=== PATIENT | male | born 1935 | race Caucasian/White ===

== ENCOUNTER 2018-01-02 21:56 | Emergency (ER) | payer OTHER ==
[~2018-01-02] VITALS: Ht 154.9 cm; Wt 54.4 kg
[2018-01-02 21:58] VITALS: BP 145/85
[2018-01-02] MEDS ORDERED: OMEP20TC12 PO (22:07)
[2018-01-02] MEDS ORDERED: CARB1TAB40 PO (22:07)
[2018-01-02] MEDS ORDERED: TRAM50TA1 PO (22:08)
--- NOTE | 2018-01-02 22:09 | NUR ---
PATIENT BIB WHEELCHAOR TO ER BED 3
--- NOTE | 2018-01-02 22:10 | NUR ---
82/M BIB FAMILY VIA WHEELCHAIR, C/O CONSTIPATION X4 DAYS. C/O 05/15 MID ABD PAIN, NONRADIATING, INTERMITTENT. LBM 4 DAYS AGO. PT DENIES CP, N/V, DYSURIA. AOX4, RR EVEN AND UNLABORED. HX PARKINSON'S, HERNIA.
[2018-01-02] MEDS ORDERED: SODIUM PHOSPHATE 118 ML ENEM RC ONE (22:40)
--- NOTE | 2018-01-02 23:20 | NUR ---
PT BACK FROM CT, WILL ADMINISTER FLEET ENEMA ORDERED
--- NOTE | 2018-01-03 | NUR ---
Patient appears to be resting comfortably in bed. Vital Signs within normal limits. Respirations even and unlabored.
[2018-01-03] MEDS ORDERED: MAGNESIUM CITRATE 300 ML BTL PO ONE (00:10)
[2018-01-03] MEDS ORDERED: MAGNESIUM CITRATE 300 ML BTL ONE (00:13)
[2018-01-03] MEDS ORDERED: KETOROLAC 30 MG/ML VIAL IM ONE (00:55)
--- NOTE | 2018-01-03 01:00 | NUR ---
PT STILL UNABLE TO HAVE BM, DR AGUERO MADE AWARE.
[2018-01-03 01:33] LABS: BASOPHILS % (AUTO) 0.9 % (0.0-2.0); EOSINOPHILS # (AUTO) 0.1 K/uL (0-0.4); EOSINOPHILS % (AUTO) 2.4 % (0.0-4.0); HEMATOCRIT 43.8 % (36-52); HEMOGLOBIN 14.8 g/dL (12.0-18.0); LYMPHOCYTES # (AUTO) 1.6 K/uL (2.0-11.5); LYMPHOCYTES % (AUTO) 30.3 % (20.5-51.1); MEAN CORPUSCULAR HEMOGLOBIN 33 pg (27-31); MEAN CORPUSCULAR HGB CONC 34 g/dL (33-37); MEAN CORPUSCULAR VOLUME 98.4 fL (80-94); MONOCYTES # (AUTO) 0.5 K/uL (0.8-1.0); MONOCYTES % (AUTO) 8.7 % (1.7-9.3); NEUTROPHILS % (AUTO) 57.7 % (42.2-75.2); PLATELET COUNT (AUTO) 211 K/uL (140-450); RED BLOOD CELL COUNT(AUTO) 4.45 MIL/uL (4.20-6.10); RED CELL DISTRIBUTION WIDTH 13.2 % (11.6-13.7); WHITE BLOOD COUNT (AUTO) 5.2 K/uL (4.8-10.8)
[2018-01-03 01:42] LABS: ANION GAP 12.5 (8-16); CARBON DIOXIDE 24.1 mmol/L (21-32); CHLORIDE 99 mmol/L (98-107); CREATININE 0.9 mg/dL (0.7-1.3); GLUCOSE 105 mg/dL (74-106); POTASSIUM 3.6 mmol/L (3.5-5.1); SODIUM SERUM 132 mmol/L (136-145); UREA NITROGEN, BLOOD 13 mg/dL (7-18)
[2018-01-03 01:48] LABS: ALBUMIN 3.9 g/dL (3.4-5.0); ASPARTATE AMINOTRANSFERASE 19 U/L (15-37); LIPASE 160 U/L (73-393); TOTAL BILIRUBIN 0.6 mg/dL (0.0-1.0)
[2018-01-03 02:05] VITALS: BP 121/65
--- NOTE | 2018-01-03 02:05 | NUR ---
Patient discharged with v/s stable. Written and verbal after care instructions given and explained. Patient alert, oriented and verbalized understanding of instructions. Wheel Chair Assisted with by caregiver. All questions addressed prior to discharge. ID band removed. Patient advised to follow up with PMD. Rx of COLACE 100MG 2 CAPS given. Patient educated on indication of medication including possible reaction and side effects. Opportunity to ask questions provided and answered.
== END 2018-01-03 02:05 | disposition home or self-care (01) ==
LOC: MED 21:56
DX: K59.00 Constipation, unspecified (principal); Z90.5 Acquired absence of kidney
CPT/HCPCS: 36415; 74176; 80053; 83690; 85025; 96372; 99285; J1885

== ENCOUNTER 2018-02-06 20:40 | Emergency (ER) | payer OTHER ==
[~2018-02-06] VITALS: Ht 152.4 cm; Wt 54.4 kg
[~2018-02-06 20:40] MED LIST: CARB1TAB40 PO; OMEP20TC12 PO; TRAM50TA1 PO
[2018-02-06 20:43] VITALS: BP 140/73
--- NOTE | 2018-02-06 20:48 | NUR ---
PT BIB WHEELCHAIR TO ER BED 03
--- NOTE | 2018-02-06 20:50 | NUR ---
82/M BIB FAMILY, CAME IN FOR MED REFILL FOR TRAMADOL 50MG BID. PT'S FAMILY STATED THAT PT WAS GIVEN THE RX BY PCP LAST TUESDAY BUT THEY LOST THE RX AND PCP WOULD NOT PRESCRIBE NEW RX. PT C/O 01/12 CHRONIC BLE PAIN. HX PARKINSONS, GERD, 1 KIDNEY. SKIN IS INTACT, PINK/WARM/DRY; AAOX4, PERRL, WITH EVEN AND STEADY GAIT; LUNGS CLEAR BL, BREATHING UNLABORED; HR EVEN AND REGULAR, BL PERIPHERAL PULSES PRESENT; BS ACTIVE X4, NO TENDERNESS TO PALPATION; PT DENIES ANY FEVER, CP, SOB, OR COUGH, N/V/D AT THIS TIME; VSS; PATIENT POSITIONED FOR COMFORT; HOB ELEVATED; BEDRAILS UP X2; BED DOWN.
[2018-02-06 21:17] VITALS: BP 140/73
--- NOTE | 2018-02-06 21:17 | NUR ---
Patient discharged with v/s stable. Written and verbal after care instructions given and explained by Dr. Marley. Patient alert, oriented and verbalized understanding of instructions. Wheel Chair Assisted with by caregiver. All questions addressed prior to discharge Dr. Marley. ID band removed. Patient advised to follow up with PMD Dr. Marley. Rx of NAPROSYN 500MG given. Patient educated on indication of medication including possible reaction and side effects Dr. Marley. Opportunity to ask questions provided and answered Dr. Marley.
== END 2018-02-06 21:17 | disposition home or self-care (01) ==
LOC: MED 20:40
DX: G89.29 Other chronic pain (principal); K21.9 Gastro-esophageal reflux disease without esophagitis; Z53.21 Procedure and treatment not carried out due to patient leaving prior to being seen by health care provider; Z79.899 Other long term (current) drug therapy
CPT/HCPCS: 99283

== ENCOUNTER 2018-02-07 04:09 | Emergency (ER) | payer OTHER ==
[~2018-02-07] VITALS: Ht 152.4 cm; Wt 54.4 kg
[2018-02-07 04:12] VITALS: BP 121/69
--- NOTE | 2018-02-07 04:18 | NUR ---
pt wheelchaired to er bed 11
--- NOTE | 2018-02-07 04:23 | NUR ---
PATIENT PRESENTS TO ED WITH leg and arm pain per caregiver. flacc 0. patient is resting comfortably in his wheelchair at this time. patients caregiver states naprosyn does not work for the patient and they need tramadol. patient is not in distress at this time. PT DENIES N/V/D; SKIN IS PINK/WARM/DRY; AAOX4 WITH EVEN AND STEADY GAIT; LUNGS CLEAR BL; HR EVEN AND REGULAR; PT DENIES ANY FEVER, CP, SOB, OR COUGH AT THIS TIME; VSS; PATIENT POSITIONED FOR COMFORT; resting comfortable in his wheelchair. ER MD MADE AWARE OF PT STATUS.
[2018-02-07] MEDS ORDERED: traMADol 50 MG TAB PO ONE (05:50)
--- NOTE | 2018-02-07 06:42 | NUR ---
Patient discharged with v/s stable. Written and verbal after care instructions given and explained. Patient alert, oriented and verbalized understanding of instructions. Ambulatory with steady gait. All questions addressed prior to discharge. ID band removed. Patient advised to follow up with PMD. Rx of GABAPENTIN given. Patient educated on indication of medication including possible reaction and side effects. Opportunity to ask questions provided and answered.
[2018-02-07 06:43] VITALS: BP 121/69
== END 2018-02-07 06:42 | disposition home or self-care (01) ==
LOC: MED 04:09
DX: G20 Parkinson's disease (principal); G62.9 Polyneuropathy, unspecified; K21.9 Gastro-esophageal reflux disease without esophagitis; Z79.899 Other long term (current) drug therapy
CPT/HCPCS: 99283

== ENCOUNTER 2018-11-09 05:55 | Emergency (ER) | payer OTHER ==
[~2018-11-09] VITALS: Ht 160 cm; Wt 54.4 kg
[2018-11-09 06:06] VITALS: BP 140/87
--- NOTE | 2018-11-09 06:25 | NUR ---
83/M BIB DAUGHTER, C/O CONSTIPATION X5 DAYS. DAUGHTER REPORTS TAKING "4 PILLS PER DAY AND HERBS FOR CONSTIPATION" WITHOUT RELIEF. DENIES FEVER, N/V, CP, SOB. LUNG SOUNDS CLEAR BL. BS ACTIVE X4, ABD SOFT ROUND TENDER DIFFUSELY. HX PARKINSON'S
[2018-11-09] MEDS ORDERED: NACL 0.9% 500 ML IV ONE (07:10)
[2018-11-09] MEDS ORDERED: KETOROLAC 30 MG/ML VIAL IVP ONE (07:10)
--- NOTE | 2018-11-09 07:11 | NUR ---
Patient being evaluated by dr. cardona at bedside.
--- NOTE | 2018-11-09 07:15 | NUR ---
RT AT BEDSIDE
[2018-11-09 07:54] LABS: BASOPHILS % (AUTO) 0.5 % (0.0-2.0); EOSINOPHILS # (AUTO) 0.1 K/uL (0-0.4); EOSINOPHILS % (AUTO) 1.3 % (0.0-4.0); HEMATOCRIT 42.2 % (36-52); HEMOGLOBIN 14.1 g/dL (12.0-18.0); LYMPHOCYTES # (AUTO) 1.3 K/uL (2.0-11.5); LYMPHOCYTES % (AUTO) 24.7 % (20.5-51.1); MEAN CORPUSCULAR HEMOGLOBIN 32 pg (27-31); MEAN CORPUSCULAR HGB CONC 33 g/dL (33-37); MONOCYTES # (AUTO) 0.3 K/uL (0.8-1.0); MONOCYTES % (AUTO) 6.7 % (1.7-9.3); NEUTROPHILS # (AUTO) 3.4 K/uL (1.8-7.7); NEUTROPHILS % (AUTO) 66.8 % (42.2-75.2); PLATELET COUNT (AUTO) 217 K/uL (140-450); RED BLOOD CELL COUNT(AUTO) 4.35 MIL/uL (4.20-6.10); RED CELL DISTRIBUTION WIDTH 14.3 % (11.6-13.7); WHITE BLOOD COUNT (AUTO) 5.1 K/uL (4.8-10.8)
--- NOTE | 2018-11-09 08:01 | NUR ---
urine collected and put in lab container, lab called for milk pickup driver
--- NOTE | 2018-11-09 08:05 | NUR ---
pt being taken to CT
--- NOTE | 2018-11-09 08:17 | NUR ---
PT BACK FROM CT
[2018-11-09 08:18] LABS: ANION GAP 13.9 (8-16); CARBON DIOXIDE 23.2 mmol/L (21-32); CHLORIDE 101 mmol/L (98-107); CREATININE 0.7 mg/dL (0.7-1.3); GLUCOSE 92 mg/dL (74-106); POTASSIUM 4.1 mmol/L (3.5-5.1); SODIUM SERUM 134 mmol/L (136-145); UREA NITROGEN, BLOOD 16 mg/dL (7-18)
[2018-11-09 08:21] LABS: ALBUMIN 3.7 g/dL (3.4-5.0); LIPASE 139 U/L (73-393)
[2018-11-09 08:27] LABS: APPEARANCE,URINE CLEAR (CLEAR); BILIRUBIN,URINE NEGATIVE (NEGATIVE); BLOOD, URINE TRACE-I (NEGATIVE); COLOR,URINE YELLOW (YELLOW); LEUKOCYTE ESTERASE ,URINE NEGATIVE (NEGATIVE); NITRITE, URINE NEGATIVE (NEGATIVE); PH,URINE 5.5 (5.0-9.0); UGLUCOSE NEGATIVE (NEGATIVE)
[2018-11-09 08:33] LABS: ASPARTATE AMINOTRANSFERASE 19 U/L (15-37); TOTAL BILIRUBIN 0.6 mg/dL (0.0-1.0)
--- NOTE | 2018-11-09 09:25 | NUR ---
Patient appears to be resting comfortably in bed. Vital Signs within normal limits. Respirations even and unlabored.
[2018-11-09 10:10] VITALS: BP 131/69
--- NOTE | 2018-11-09 10:11 | NUR ---
Patient discharged with v/s stable. Written and verbal after care instructions given and explained. Patient alert, oriented and verbalized understanding of instructions. Wheel Chair Assisted with by family. All questions addressed prior to discharge. ID band removed. Patient advised to follow up with PMD. Rx of colace, miralax given. Patient educated on indication of medication including possible reaction and side effects. Opportunity to ask questions provided and answered.
== END 2018-11-09 10:11 | disposition home or self-care (01) ==
LOC: MED 05:55
DX: K59.00 Constipation, unspecified (principal); K42.9 Umbilical hernia without obstruction or gangrene; K44.9 Diaphragmatic hernia without obstruction or gangrene; K21.9 Gastro-esophageal reflux disease without esophagitis; G20 Parkinson's disease
CPT/HCPCS: 36415; 74022; 74176; 80053; 81001; 83690; 85025; 87086; 93005; 96374; 99284; J1885; J7030

== ENCOUNTER 2019-01-18 21:05 | Inpatient (IN) | payer OTHER ==
[~2019-01-18] VITALS: Ht 152.4 cm; Wt 56.2 kg
[2019-01-18 21:15] VITALS: BP 141/86
--- NOTE | 2019-01-18 21:15 | NUR ---
83/M BIB FAMILY, C/O VOMITING SINCE AM, PT WITH ACTIVE VOMITING AT THIS TIME WITH BROWN EMESIS. PT IS NONVERBAL BUT ABLE TO COMMUNICATE BY NODDING, WHEELCHAIR-BOUND, ABLE TO STAND WITH ASSIST, NOTED WITH BODY AND PERIPHERAL CONTRACTURES. LUNG SOUNDS CLEAR BL. HR EVEN AND REGULAR. BS ACTIVE X4, ABD SOFT FLAT NONTENDER. PT WITH CHRONIC BODY PAIN DUE TO IMMOBILITY. HX PARKINSONS, NEPHRECTOMY, GASTRITIS RX CARVEDILOL, TRAMADOL TID, CONSTIPATION MED, CARBIDOPA-LEVADOPA OTC VINCENT JOLENE Addendum: 01/18/19 at 2254 by [email or web address] PT IS ABLE TO TALK SOFTLY Addendum: 01/18/19 at 2350 by [email or web address] ABD FIRM ROUND AND TENDER TO TOUCH; C/O CONSTIPATION; LBM 3 DAYS AGO Addendum: 01/19/19 at 0210 by [email or web address] PT DOES NOT TAKE CARVEDILOL
--- NOTE | 2019-01-18 21:15 | NUR ---
PT TRIAGED IN BED, BIB W/C BY FAMILY
--- NOTE | 2019-01-18 21:20 | NUR ---
PT KEPT IN LEFT LYING LATERAL POSITION FOR COMFORT AND TO PREVENT ASPIRATION
--- NOTE | 2019-01-18 21:38 | NUR ---
DR. AGUERO BEDSIDE EVALUATING PT
[2019-01-18] MEDS ORDERED: NACL 0.9% 1,000 ML IV ONE (21:42)
[2019-01-18] MEDS ORDERED: MORPHINE SULFATE 2 MG/ML SYR IVP ONE (21:45)
[2019-01-18] MEDS ORDERED: ONDANSETRON 4 MG/2 ML VIAL IVP ONE (21:45)
[2019-01-18 22:09] LABS: BASOPHILS % (AUTO) 0.5 % (0.0-2.0); HEMATOCRIT 39.9 % (36-52); HEMOGLOBIN 13.6 g/dL (12.0-18.0); LYMPHOCYTES # (AUTO) 0.3 K/uL (2.0-11.5); MEAN CORPUSCULAR HEMOGLOBIN 34 pg (27-31); MEAN CORPUSCULAR HGB CONC 34 g/dL (33-37); MEAN CORPUSCULAR VOLUME 99.7 fL (80-94); MONOCYTES # (AUTO) 0.4 K/uL (0.8-1.0); MONOCYTES % (AUTO) 5.3 % (1.7-9.3); NEUTROPHILS # (AUTO) 7.4 K/uL (1.8-7.7); NEUTROPHILS % (AUTO) 90.2 % (42.2-75.2); PLATELET COUNT (AUTO) 257 K/uL (140-450); WHITE BLOOD COUNT (AUTO) 8.2 K/uL (4.8-10.8)
--- NOTE | 2019-01-18 22:10 | NUR ---
PT UNABLE TO COLLECT URINE SAMPLE AT THIS TIME, WILL ATTEMPT AGAIN LATER
--- NOTE | 2019-01-18 22:13 | NUR ---
ADMINISTERED ZOFRAN IVP TO PREVENT N/V BEFORE CT SCAN. WILL HOLD MORPHINE IVP AT THIS TIME.
--- NOTE | 2019-01-18 22:20 | NUR ---
PT TAKEN TO CT
[2019-01-18 22:31] LABS: ANION GAP 19.5 (8-16); CARBON DIOXIDE 20.4 mmol/L (21-32); CHLORIDE 95 mmol/L (98-107); CREATININE 1.6 mg/dL (0.7-1.3); GLUCOSE 121 mg/dL (74-106); POTASSIUM 3.9 mmol/L (3.5-5.1); SODIUM SERUM 131 mmol/L (136-145); UREA NITROGEN, BLOOD 50 mg/dL (7-18)
--- NOTE | 2019-01-18 22:40 | NUR ---
PT BACK FROM CT
[2019-01-18 22:55] LABS: ASPARTATE AMINOTRANSFERASE 19 U/L (15-37); LIPASE 84 U/L (73-393); TOTAL BILIRUBIN 0.9 mg/dL (0.0-1.0)
--- NOTE | 2019-01-18 22:55 | NUR ---
PT C/O BACK PAIN. ADMINISTERED MORPHINE 2MG IVP DILUTED IN 2ML NS IN 10 MINS, PT WITH EPISODE OF VOMITING WITH MINIMAL AMOUNT OF BROWN EMESIS.
--- NOTE | 2019-01-18 23:30 | NUR ---
PT UNABLE TO COLLECT URINE. URINE COLLECTED VIA STRAIGHT CATHETER, 800ML TEA-COLORED URINE COLLECTED. PT TOLERATED WELL. SENT TO LAB. EFFIE BUTTERFIELD MADE AWARE.
[2019-01-18 23:41] LABS: APPEARANCE,URINE CLEAR (CLEAR); BILIRUBIN,URINE NEGATIVE (NEGATIVE); BLOOD, URINE TRACE-I (NEGATIVE); COLOR,URINE DARK YELLOW (YELLOW); LEUKOCYTE ESTERASE ,URINE TRACE (NEGATIVE); NITRITE, URINE NEGATIVE (NEGATIVE); UGLUCOSE NEGATIVE (NEGATIVE)
--- NOTE | 2019-01-19 01:07 | NUR ---
PT LAYING IN BED, FAMILY AT BEDSIDE. VSS. RR EVEN AND UNLABORED. REPORTS CHRONIC BACK PAIN AND THROAT DISCOMFORT FROM VOMITING. NO NAUSEA/VOMITING AT THIS TIME. ALL NEEDS MET.
[2019-01-19] MEDS ORDERED: cefTRIAXone 1,000 MG VIAL ONE (01:34)
--- NOTE | 2019-01-19 02:00 | NUR ---
PT TURNED AND CHANGED HAD A SMEAR OF BM. PT REPOSITIONED, ALL FALLS PROTOCOL OBSERVED.
[2019-01-19] MEDS ORDERED: QUET25TA PO (02:14)
[2019-01-19] MEDS ORDERED: QUEtiapine FUMARATE 25 MG TAB PO PRN (03:05)
[2019-01-19] MEDS ORDERED: ACETAMINOPHEN 325 MG TAB PO PRN (03:10)
--- NOTE | 2019-01-19 03:20 | NUR ---
PT LAYING IN BED LEFT LATERAL, FAMILY AT BEDSIDE. VSS. RR EVEN AND UNLABORED. NO NAUSEA/VOMITING AT THIS TIME. ALL NEEDS MET.
--- NOTE | 2019-01-19 04:13 | NUR ---
PT ADMITTED TO [facility] FLOOR, ROOM 107A, DR VILLANUEVA, VIA GURNEY WITH ARETHA EMT. VSS, CONDITION STABLE. REPORTS GIVEN TO TYRONE MEYER AT BEDSIDE.
--- NOTE | 2019-01-19 04:18 | NUR ---
RECEIVED BEDSIDE REPORT FROM SIMULATION ANALYSTMITCH COTTRELL. SKIN INTACT. REDNESS TO BILATERAL LOWER EXTREMITIES. NO OPEN WOUNDS. DRY SKIN. UNABLE TO WALK. MUSCLES ARE RIGID THROUGHOUT LOWER BODY. WHEELCHAIR AT BEDSIDE. BENINESE SPEAKING. DAUGHTER (ACE) AT BEDSIDE SPEAKS AND UNDERSTANDS LATVIAN. ORIENTED TO CALL LIGHT USE AND CARE PLANS FOR THE NIGHT DISCUSSED WITH THE DAUGHTER. TELE MONITORING. R UPPER ARM 20G SL. PATENT, DRY AND INTACT. DX UTI, DEHYDRATION.
[2019-01-19] MEDS: NACL 0.9% 1,000 ML IV SCH ×3 (05:43→17:40)
--- NOTE | 2019-01-19 05:43 | NUR ---
STARTED INFUSING NS ORDERED AT 75ML/H. IV SITE IN R UPPER ARM 20G. PATENT AND INTACT. TOLERATED WELL. DAUGHTER AT BEDSIDE.
--- NOTE | 2019-01-19 06:51 | NUR ---
WILL ENDORSE PT TO AM SHIFT RN FOR CONTINUITY OF CARE. PT ALERT. NON VERBAL. DAUGHTER AT BEDSIDE. IN STABLE CONDITION.
--- NOTE | 2019-01-19 07:15 | NUR ---
RECEIVED BEDSIDE REPORT FROM NIGHT NURSE. PT IS SITTING UP IN BED WITH FAMILY PRESENT AT BEDSIDE. PT IS AOX1, APHASIC AND BREATHING IS EQUAL AND UNLABORED AT THIS TIME WITH LUNGS CLEAR. IV SITE TO RIGHT UPPER ARM CURRENTLY INFUSING NS AT 75ML/HR, PATENT AND ASYMPTOMATIC. ALL SAFETY MEASURES IN PLACE AND CALL LIGHT WITHIN REACH. POC DISCUSSED IN PT AND FAMILY PRESENCE. BLADDER IS NON-DISTENDED AND NON-TENDER TO PALPATION. WILL CONTINUE TO MONITOR.
--- NOTE | 2019-01-19 07:55 | NUR ---
PT FAMILY IS AT BEDSIDE FEEDING PT WHILE HE IS IN HIGH FOWLERS. NO VOMITING OR DYSPHAGIA NOTED. PT TOLERATING WELL. NO OBVIOUS SIGNS OF ACUTE DISTRESS.
[2019-01-19 08:00] VITALS: BP 122/78
--- NOTE | 2019-01-19 08:38 | NUR ---
PATIENT HAS BEEN SCREENED AND CATEGORIZED MODERATE NUTRITION RISK. PATIENT WILL BE SEEN WITHIN 3-5 DAYS OF ADMISSION. 01/21/19[address]
[2019-01-19] MEDS: CARBIDOPA/LEVODOPA 25/250 MG 1 TAB PO SCH ×3 (08:55→16:38)
[2019-01-19] MEDS: traMADol 50 MG TAB PO SCH ×3 (08:56→16:38)
[2019-01-19] MEDS ORDERED: PANTOPRAZOLE 40 MG TABEC PO ONE (09:00)
[2019-01-19] MEDS: ENOXAPARIN 30 MG/0.3 ML SYR SUBQ SCH (09:03)
--- NOTE | 2019-01-19 09:20 | NUR ---
ADMINISTERED MEDICATIONS AND DID BLADDER SCAN. PT TOLERATED WELL, WITH NO OBVIOUS SIGNS OF ACUTE DISTRESS. BLADDER SCAN SHOWED 559 ML ON HIGHEST SCAN, NO DISTENTION NOTED AND PT STATES HE DOES NOT FEEL NEED TO URINATE.
--- NOTE | 2019-01-19 09:28 | NUR ---
CONTACTED DR. VILLANUEVA'S OFFICE AND HAD THE AIR REDUCTION EQUIPMENT OPERATOR PAGE DR. VILLANUEVA TO CONTACT ME SOON POSSIBLE REGARDING 559ML BLADDER RETENTION AND FURTHER ORDERS.
--- NOTE | 2019-01-19 09:44 | NUR ---
SPOKE WITH DR. VILLANUEVA AND NOTIFIED HIM OF PT BLADDER SCAN READING OF 559. HE INFORMED ME THAT WAS FINE AND TO PUT AN ORDER IN IF BLADDER RETENTION IS >800ML AND TO THEN STRAIGHT CATH PT.
--- NOTE | 2019-01-19 11:50 | NUR ---
SCREEN FOR LOW CHAYITO SCALE AT RISK, SKIN INTACT. NO REDNESS AT THIS TIME. RECOMMENDATIONS: -HEEL PROTECTORS TO LEFT HEELS AT ALL TIMES -OFFLOAD BILATERAL HEELS BY PLACING PILLOWS UNDER CALVES UNLESS OTHERWISE CONTRAINDICATED -PRESSURE REDISTRIBUTION SURFACE THERAPY -TURN AND REPOSITION Q2H, OFFLOAD SACRALCOCCYX AND BUTTOCKS BY TURNING RIGHT AND LEFT -KEEP SKIN DRY AND CLEAN AT ALL TIMES, PLEASE CHECK Q2H AND PRN FOR INCONTINENCY OF BOWEL AND BLADDER.
[2019-01-19 12:00] VITALS: BP 120/75
--- NOTE | 2019-01-19 12:30 | NUR ---
PT SITTING UP IN BED WITH FAMILY AT BEDSIDE. BLADDER IS NOT DISTENDED AND THERE IS NO DISCOMFORT ON PALPATION TO BLADDER Addendum: 01/19/19 at 1238 by Sarkis Morales RN NO OBVIOUS SIGNS OF DISTRESS
--- NOTE | 2019-01-19 12:44 | NUR ---
PT RESTING IN BED, NO S/S PAIN. FLACC 0. DAUGHTER AT BEDSIDE SAID NOT ADMIN TRAMADOL. DAUGHTER STATES PATIENT ONLY GETS 1/4 TABLET SINEMET PER DAY. ASKED DAUGHTER WHAT DOSE PATIENT GETS AT HOME THE PILL DOSAGE MAY BE DIFFERENT. DAUGHTER WILL FIND OUT. WILL NOT ADMIN SINEMET AT THIS TIME.
--- NOTE | 2019-01-19 14:09 | NUR ---
PT RESTING IN BED WITH NO OBVIOUS SIGNS OF DISTRESS AND NO REQUESTS.
--- NOTE | 2019-01-19 15:48 | NUR ---
NOTIFIED PHARMACIST THAT PER DAUGHTER AT BEDSIDE, PATIENT ONLY TAKES SINEMET 25/250 MG QD NOT QID. DOSE ALREADY GIVEN IN THE MORNING. PHARMACIST VERBALIZED UNDERSTANDING AND WILL MAKE CHANGES. Addendum: 01/19/19 at 1558 by Tammy Bowen Meng, RN 0.25 TABLET OF SINEMET 25/250 MG
[2019-01-19 16:00] VITALS: BP 127/76
--- NOTE | 2019-01-19 16:27 | NUR ---
PT RESTING IN BED FAMILY AT BEDSIDE. BREATHING EQUAL AND UNLABORED FREE OF SIGNS OF OBVIOUS DISTRESS
--- NOTE | 2019-01-19 16:27 | NUR ---
DAUGHTER AT BEDSIDE STATES PT TAKES OMEPRAZOLE 20 MG QDAY. PHARMACY DOES NOT CARRY OMEPRAZOLE. INFORMED DAUGHTER THAT WE ONLY CARRY PROTONIX. DAUGHTER STATES SHE WILL HAVE SOMEONE BRING HOME MED OMEPRAZOLE.
--- NOTE | 2019-01-19 16:38 | NUR ---
PATIENT STATES 0/10 PAIN, RESTING COMFORTABLY IN BED WITH DAUGHTER AT BEDSIDE, REFUSED SCHEDULED TRAMADOL.
--- NOTE | 2019-01-19 17:45 | NUR ---
BLADDER SCAN SHOWS >827 ML. Addendum: 01/19/19 at 1815 by Tammy Bowen Meng RN BLADDER NON-TENDER TO PALPATION.
[2019-01-19] MEDS ORDERED: OMEPRAZOLE 20MG CAP PO SCH (18:00)
--- NOTE | 2019-01-19 18:13 | NUR ---
STRAIGHT CATH PT PER MD ORDERS. OUTPUT IS 1200 ML CRISPIN URINE.
--- NOTE | 2019-01-19 19:05 | NUR ---
REPORT RECEIVED FROM APURVA RN AND LORETTA RN DAYSHIFT NURSE AT BEDSIDE FOR CONTINUITY OF CARE, PT IN STABLE CONDITION. PT IS IN BED WITH ALL FALLS PRECAUTIONS IN PLACE. PT IS AOX1. HE WILL RESPOND TO NAME AND TOUCH BUT IS SLOW TO RESPOND AND MUMBLES. PT IS NEPALI SPEAKING AND FAMILY REMAINS AT BEDSIDE TO INTERPRET FOR HIM. PUPILS ARE EQUAL AND REACTIVE TO LIGHT. LUNGS SOUNDS DIMINISHED AND BOWEL SOUNDS PRESENT. PT IS INCONTINENT OF BOWEL AND BLADDER AND LAST URINE OUTPUT WAS STRAIGHT CATHETERIZED. PT DENIES PAIN AT THIS TIME. PT IV SITE IS 20G ON RIGHT UPPER ARM AND IS INFUSING N/S AT 75.
--- NOTE | 2019-01-19 19:05 | NUR ---
GAVE BEDSIDE REPORT TO NIGHT NURSE. PT RESTING IN BED WITHOUT SIGNS OF OBVIOUS DISTRESS. INSTRUCTED NIGHT NURSE TO STRAIGHT CATH FOR >800ML ON BLADDER SCAN.
[2019-01-19 20:00] VITALS: BP 111/60
--- NOTE | 2019-01-19 20:45 | NUR ---
PT IN BED AND FAMILY AT BEDSIDE. V/S FOLLOWS T 99.5 P 80 R 18 B/P 111/60 02 95% ON ROOM AIR. PT TURNED AND REPOSITIONED. IV SITE CONTINUES TO BEEP DESPITE BEING FLUSHED AND LINES BEING RE-PRIMED. IV SITE WAS INSERTED ON THE 01/13. WILL REPLACE IV SITE. PT GIVEN COOLING MEASURES OF ICE DUE TO SLIGHTLY ELEVATED TEMPERATURE.
--- NOTE | 2019-01-19 22:45 | NUR ---
OLD IV SITE ON RIGHT UPPER ARM D/CD AND REPLACE WITH A 22G ON RIGHT HAND, FLUID RUNNING N/S AT 75. PT BLADDER SCANNED AND IS ABOUT 400MLS. WILL MONITOR PT AND RESCAN PT LATER. PT DENIES ANY PAIN AT THIS TIME. PT GIVEN A SMALL AMOUNT OF THICKENED WATER UPON REQUEST.
[2019-01-20] VITALS: BP 112/79
--- NOTE | 2019-01-20 | NUR ---
PT IN BED HOB UP 45%. PT TURNED AND REPOSITIONED AND HAD 1 BM NO URINE OUTPUT NOTED YET. V/S FOLLOWS T 97.7 P 87 R 18 B/P 135/80 02 95% ON ROOM AIR.
[2019-01-20 04:00] VITALS: BP 126/78
--- NOTE | 2019-01-20 04:00 | NUR ---
BLADDER WAS SCANNED AND PT HAD 832MLS . PT ALSO C/O MODERATE PAIN IN ABDOMEN. PT WAS STRAIGHT CATHETERIZED AND 600MLS OF CRISPIN URINE OBTAINED. PT ALSO HAD ANOTHER SMEAR OF BM. PT WAS TURNED AND REPOSITIONED, BED LINENS CHANGED AT THIS TIME WELL. PT C/O OF THIRST AND WAS GIVEN THICKENED JUICE. PT ALSO GIVEN 1 TAB OF NORCO PO/PRN FOR MODERATE PAIN. PT IV SITE ON LEFT HAND REMAINS INTACT WAS FLUSHED PATENT AND CONTINUES TO RUN N/S AT 75MLS/HR. FAMILY AT BEDSIDE.
--- NOTE | 2019-01-20 04:30 | NUR ---
PT IN BED RESTING WITH EYES CLOSED NO S/S OF PAIN OR DISTRESS V/S FOLLOWS T 97.7 P 74 R 18 B/P 126/78 02 94% ON ROOM AIR.
[2019-01-20] MEDS: HYDROcodone/APAP 5/325 MG 1 TAB TAB PO PRN (04:31)
[2019-01-20] MEDS: OMEPRAZOLE 20MG CAP PO SCH (05:25)
[2019-01-20] MEDS: MORPHINE SULFATE 4 MG/ML SYR IVP PRN (05:26)
--- NOTE | 2019-01-20 05:42 | NUR ---
FAMILY AT BEDSIDE C/O PT IN A LOT OF PAIN. PT WAS HEARD MOANING AND HAS A FACIAL GRIMACE. PT GIVEN MORPHINE IVP, WILL MONITOR EFFECT.
--- NOTE | 2019-01-20 07:25 | NUR ---
GAVE REPORT TO REYNALDO RN DAYSHIFT NURSE AT BEDSIDE FOR CONTINUITY OF CARE, PT IN STABLE CONDITION.
--- NOTE | 2019-01-20 07:26 | NUR ---
RECEIVED BEDSIDE REPORT FROM CYANIDE POT HARDENER NURSE. PATIENT IS AWAKE, ALERT AND ORIENTEDX1. NO SIGNS OF DISTRESS ON RA. SKIN IS INTACT. PATIENT IS FALL RISK, BED BOUND. FALL RISK PROTOCOL IN PLACE. IV ON L HAND 22G INFUSING NS AT 75. CLEAN, DRY AND INTACT. PATIENT IS INCONTINENT. TELE MONITOR IN PLACE. BED IN LOW POSITION. CALL LIGHT WITHIN REACH. WILL CONTINUE TO MONITOR THE PATIENT
[2019-01-20 08:00] VITALS: BP 109/73
[2019-01-20] MEDS ORDERED: CARBIDOPA/LEVODOPA 25/250 MG 1 TAB PO SCH (08:00)
[2019-01-20] MEDS ORDERED: COMMUNICATION ORDER MC SCH (09:00)
[2019-01-20 09:17] LABS: BASOPHILS % (AUTO) 0.2 % (0.0-2.0); EOSINOPHILS % (AUTO) 0.7 % (0.0-4.0); HEMOGLOBIN 10.4 g/dL (12.0-18.0); LYMPHOCYTES # (AUTO) 0.7 K/uL (2.0-11.5); LYMPHOCYTES % (AUTO) 10.5 % (20.5-51.1); MEAN CORPUSCULAR HEMOGLOBIN 35 pg (27-31); MEAN CORPUSCULAR HGB CONC 35 g/dL (33-37); MONOCYTES # (AUTO) 0.4 K/uL (0.8-1.0); MONOCYTES % (AUTO) 5.5 % (1.7-9.3); NEUTROPHILS # (AUTO) 5.5 K/uL (1.8-7.7); NEUTROPHILS % (AUTO) 83.1 % (42.2-75.2); PLATELET COUNT (AUTO) 167 K/uL (140-450); RED CELL DISTRIBUTION WIDTH 13.9 % (11.6-13.7); WHITE BLOOD COUNT (AUTO) 6.6 K/uL (4.8-10.8)
[2019-01-20 09:26] LABS: MAGNESIUM 1.6 mg/dL (1.8-2.4); PHOSPHORUS 1.8 mg/dL (2.5-4.9)
[2019-01-20 09:28] LABS: ANION GAP 11.6 (8-16); CARBON DIOXIDE 24.6 mmol/L (21-32); CHLORIDE 105 mmol/L (98-107); CREATININE 0.6 mg/dL (0.7-1.3); GLUCOSE 85 mg/dL (74-106); POTASSIUM 3.2 mmol/L (3.5-5.1); SODIUM SERUM 138 mmol/L (136-145); UREA NITROGEN, BLOOD 22 mg/dL (7-18)
[2019-01-20] MEDS: traMADol 50 MG TAB PO SCH ×3 (09:31→16:48)
[2019-01-20] MEDS: CARBIDOPA/LEVODOPA 25/250 MG 1 TAB PO SCH (09:32)
[2019-01-20] MEDS: ENOXAPARIN 30 MG/0.3 ML SYR SUBQ SCH (09:33)
--- NOTE | 2019-01-20 09:35 | NUR ---
ADMINISTERED MEDS AND PRN NAUSEA MED. CRUSHED AND GIVEN W APPLESAUCE. PATIENT TOLERATED WELL AND EDUCATED ON SIDE EFFECTS. PATIENT UNABLE TO VERBALIZE UNDERSTANDING. BED IN LOW POSITION. CALL LIGHT WITHIN REACH. WILL CONTINUE TO MONITOR THE PATIENT.
[2019-01-20] MEDS: ONDANSETRON 4 MG/2 ML VIAL IVP PRN ×2 (09:36→13:35)
[2019-01-20] MEDS ORDERED: TAMSULOSIN 0.4 MG CAP PO SCH (10:15)
--- NOTE | 2019-01-20 10:40 | NUR ---
ADMINISTERED MEDS ORDERED. EDUCATED ON SIDE EFFECTS. STUDENT NURSE, GOLDIE PLACED URINE CATHETER W PROFESSOR ORDERED BY DR GIBSON. 150 UO W DARK CRISPIN URINE. PATIENT TOLERATED WELL. WILL CONTINUE TO MONITOR. DAUGHTER AT BEDSIDE
[2019-01-20 12:00] VITALS: BP 135/79
--- NOTE | 2019-01-20 12:58 | NUR ---
PATIENT SITTING IN BED. NO SIGNS OF DISTRESS. FAMILY AT BEDSIDE
[2019-01-20] MEDS: NACL 0.9% 1,000 ML IV SCH (13:23)
--- NOTE | 2019-01-20 13:26 | NUR ---
PATIENT AND DAUGHTER REFUSED TRAMADOL AT THIS TIME. THEY SAID PATIENT IS IN NO PATIENT. NEW IVF HUNG. BED IN LOW POSITION. WILL CONTINUE TO MONITOR. FAMILY AT BEDSIDE
--- NOTE | 2019-01-20 13:38 | NUR ---
ADMINISTERED PRN NAUSEA MED. PATIENT TOLERATED WELL. EDUCATED ON SIDE EFFECTS. WILL CONTINUE TO MONITOR THE PATIENT.
--- NOTE | 2019-01-20 15:41 | NUR ---
PATIENT SITTING IN BED. NO SIGNS OF DISTRESS. FAMILY AT BEDSIDE. WILL CONTINUE TO MONITOR
[2019-01-20 16:00] VITALS: BP 119/61
[2019-01-20] MEDS ORDERED: POTASSIUM CHLORIDE 20% 40 MEQ/15 ML UDC PO SCH (16:30)
--- NOTE | 2019-01-20 16:49 | NUR ---
ADMINISTERED MEDS. PATIENT REFUSED CRISSY PAIN MEDS. FAMILY SAID PATIENT IS NOT IN PAIN AND DOES NOT NEED IT. PATIENT TOLERATED MED WELL. WILL CONTINUE TO MONITOR
[2019-01-20] MEDS ORDERED: MAGNESIUM OXIDE 400 MG TAB PO ONE ×2 (17:05)
--- NOTE | 2019-01-20 18:49 | NUR ---
PATIENT SITTING IN BED. NO SIGNS OF DISTRESS. FAMILY AT BEDSIDE
--- NOTE | 2019-01-20 19:04 | NUR ---
GAVE BEDSIDE REPORT TO CYBER SECURITY ENGINEER NURSE. PATIENT ENDORSED IN STABLE CONDITION
--- NOTE | 2019-01-20 19:06 | NUR ---
Received endorsement from AM shift RN; patient is A/Ox1, unable to make needs known, Filipino speaking; daughter at bedside. Introduced self, update board. No SOB or distress noted, on room air. IV site on left hand, 22 gauge, running IVF at 75mL/hr. Skin intact. Bed in the lowest position, call light within reach. Initial assessment done. Will continue to monitor.
--- NOTE | 2019-01-20 21:35 | NUR ---
Rounds done, patient laying in bed. Daughter at bedside.
[2019-01-20 23:17] VITALS: BP 113/62
--- NOTE | 2019-01-20 23:53 | NUR ---
Vital taken, no distress noted. Daughter at bedside.
[2019-01-21] MEDS: HYDROcodone/APAP 5/325 MG 1 TAB TAB PO PRN (00:18)
--- NOTE | 2019-01-21 01:17 | NUR ---
Patient noted with small BM; patient cleaned, chux and linens changed. Tolerated well.
[2019-01-21] MEDS: NACL 0.9% 1,000 ML IV SCH ×2 (02:02→20:33)
--- NOTE | 2019-01-21 03:39 | NUR ---
Frequent checks made; patient asleep, visible chest rise and fall noted.
--- NOTE | 2019-01-21 05:55 | NUR ---
Rounds made, patient coughing; administered PRN Mucinex per orders. Will continue to monitor. Addendum: 01/21/19 at 0557 by José Kitchen RN Charted on wrong patient.
--- NOTE | 2019-01-21 05:56 | NUR ---
Rounds done. Patient asleep, daughter at bedside.
[2019-01-21] MEDS: OMEPRAZOLE 20MG CAP PO SCH (06:30)
--- NOTE | 2019-01-21 07:03 | NUR ---
Endorsed patient to AM shift RN for continuity of care; patient in stable condition.
--- NOTE | 2019-01-21 07:04 | NUR ---
RECEIVED BEDSIDE REPORT FROM VP SALES NURSE. PATIENT IS AWAKE, ALERT AND ORIENTEDX1. PERUVIAN SPEAKER. PATIENT IS BEDBOUND, FALL RISK PROTOCOL IN PLACE. SKIN IS INTACT. L HAND 22G INFUSING NS AT 75. CLEAN, DRY AND INTACT. FAMILY AT BEDSIDE. PATIENT IS INCONTINENT, COHEN IN PLACE. BED IN LOW POSITION. CALL LIGHT WITHIN REACH. WILL CONTINUE TO MONITOR THE PATIENT.
[2019-01-21 07:38] LABS: BASOPHILS % (AUTO) 0.4 % (0.0-2.0); EOSINOPHILS # (AUTO) 0.1 K/uL (0-0.4); EOSINOPHILS % (AUTO) 3.1 % (0.0-4.0); HEMATOCRIT 30.6 % (36-52); HEMOGLOBIN 10.5 g/dL (12.0-18.0); LYMPHOCYTES # (AUTO) 0.8 K/uL (2.0-11.5); LYMPHOCYTES % (AUTO) 17.1 % (20.5-51.1); MEAN CORPUSCULAR HEMOGLOBIN 34 pg (27-31); MEAN CORPUSCULAR HGB CONC 34 g/dL (33-37); MONOCYTES # (AUTO) 0.3 K/uL (0.8-1.0); NEUTROPHILS # (AUTO) 3.2 K/uL (1.8-7.7); NEUTROPHILS % (AUTO) 72.4 % (42.2-75.2); PLATELET COUNT (AUTO) 162 K/uL (140-450); RED BLOOD CELL COUNT(AUTO) 3.06 MIL/uL (4.20-6.10); RED CELL DISTRIBUTION WIDTH 13.8 % (11.6-13.7); WHITE BLOOD COUNT (AUTO) 4.4 K/uL (4.8-10.8)
[2019-01-21 08:00] VITALS: BP 135/67
[2019-01-21 08:33] LABS: MAGNESIUM 1.5 mg/dL (1.8-2.4); PHOSPHORUS 1.5 mg/dL (2.5-4.9)
[2019-01-21 08:42] LABS: ANION GAP 12.4 (8-16); CARBON DIOXIDE 23.3 mmol/L (21-32); CHLORIDE 105 mmol/L (98-107); CREATININE 0.5 mg/dL (0.7-1.3); GLUCOSE 89 mg/dL (74-106); POTASSIUM 3.7 mmol/L (3.5-5.1); SODIUM SERUM 137 mmol/L (136-145); UREA NITROGEN, BLOOD 14 mg/dL (7-18)
[2019-01-21] MEDS: CARBIDOPA/LEVODOPA 25/250 MG 1 TAB PO SCH (09:13)
[2019-01-21] MEDS: FINASTERIDE 5 MG TAB PO SCH (09:14)
[2019-01-21] MEDS: traMADol 50 MG TAB PO SCH ×3 (09:15→17:14)
[2019-01-21] MEDS: ONDANSETRON 4 MG/2 ML VIAL IVP PRN ×3 (09:16→20:33)
[2019-01-21] MEDS: TAMSULOSIN 0.4 MG CAP PO SCH (09:16)
[2019-01-21] MEDS: ENOXAPARIN 30 MG/0.3 ML SYR SUBQ SCH (09:17)
--- NOTE | 2019-01-21 09:27 | NUR ---
PATIENT COMPLAINS OF NAUSEA. ADMINISTERED PRN NAUSEA MED AND CRISSY MEDS. PATIENT TOLERATED WELL. EDUCATED ON SIDE EFFECTS TO PATIENT AND DAUGHTER. WILL CONTINUE TO MONITOR THE PATIENT
[2019-01-21] MEDS ORDERED: MAG SULF 2000 MG/WATER PREMIX 50 ML IV ONE ×2 (10:10)
--- NOTE | 2019-01-21 10:53 | NUR ---
ADMINISTERED CRISSY MAGNESIUM. PATIENT TOLERATING WELL. NO SIGNS OF DISTRESS. SITTING AT BEDSIDE W DAUGHTER. WILL CONTINUE TO MONITOR
[2019-01-21] MEDS ORDERED: MAGNESIUM SULFATE 4GM in STERILE WATER 100 ML PREMIX IV SCH (11:00)
--- NOTE | 2019-01-21 11:00 | NUR ---
PATIENT SITTING IN BED. NO SIGNS OF DISTRESS. WILL CONTINUE TO MONITOR THE PATIENT.
--- NOTE | 2019-01-21 13:11 | NUR ---
PATIENT REFUSED CRISSY PAIN MED. DAUGHTER SAID PATIENT DOES NOT NEED IT. PATIENT EATING, NO SIGNS OF DISTRESS. WILL CONTINUE TO MONITOR THE PATIENT
--- NOTE | 2019-01-21 14:34 | NUR ---
PATIENT COMPLAINS THAT HE CANNOT SLEEP D/T NAUSEA. GAVE PATIENT PRN NAUSEA MED. EDUCATED ON SIDE EFFECTS. WILL CONTINUE TO MONITOR THE PATIENT.
[2019-01-21 16:00] VITALS: BP 113/71
--- NOTE | 2019-01-21 16:57 | NUR ---
PATIENT LAYING IN BED. NO SIGNS OF DISTRESS. BED IN LOW POSITION. CALL LIGHT WITHIN REACH. FAMILY AT BEDSIDE
--- NOTE | 2019-01-21 17:27 | NUR ---
ADMINISTERED CRISSY PAIN MED. PATIENT TOLERATED WELL. EDUCATED ON SIDE EFFECTS. WILL CONTINUE TO MONITOR THE PATIENT
--- NOTE | 2019-01-21 19:10 | NUR ---
GAVE BEDSIDE REPORT TO STORAGE FACILITY RENTAL CLERK NURSE. PATIENT ENDORSED IN STABLE CONDITION
--- NOTE | 2019-01-21 19:30 | NUR ---
RECEIVED BEDSIDE REPORT FROM DAY SHIFT RN, PATIENT IN BED BEING CHANGED BY STONEWORKING SANDER, FAMILY AT BEDSIDE, PATIENT AAOX1, SLOVENIAN SPEAKING. IV IN LEFT HAND 22 G INFUSING NS AT 75 ML/HR. COHEN CATH IN PLACE, CALL LIGHT WITHIN REACH. WILL CONTINUE TO MONITOR.
--- NOTE | 2019-01-21 19:45 | NUR ---
PATIENT C/O FEELING LIKE VOMITING WILL MEDICATE
--- NOTE | 2019-01-21 20:45 | NUR ---
DUE MEDICATIONS GIVEN PATIENT TOLERATED WELL
--- NOTE | 2019-01-21 21:54 | NUR ---
PATIENT ASLEEP IN BED, BED ALARM ON WILL CONTINUE TO MONITOR
--- NOTE | 2019-01-21 22:50 | NUR ---
COHEN CARE PROVIDED. URINE DARK CRISPIN IN COLOR.
[2019-01-21 23:26] VITALS: BP 134/82
--- NOTE | 2019-01-22 00:36 | NUR ---
ENDORSED PATIENT TO GLASS CLEANING MACHINE TENDER NURSE HELLEN FOR CONTINUITY OF CARE. PATIENT STABLE.
--- NOTE | 2019-01-22 00:36 | NUR ---
RECEIVED ENDORSEMENT FROM SUMMER DUE TO CHANGE IN ASSIGNMENT, PT RECENTLY TURNED AND CHANGED. PT HAS NO REQUESTED NEEDS AT THIS TIME PROVIDED BY DAUGHTER WHOM TRANSLATES. DAUGHTER WANTS PT TO GET SOME SLEEP.
[2019-01-22] MEDS: MORPHINE SULFATE 4 MG/ML SYR IVP PRN (05:14)
[2019-01-22] MEDS: OMEPRAZOLE 20MG CAP PO SCH (05:14)
--- NOTE | 2019-01-22 05:15 | NUR ---
PT IN BED WITH ALL FALLS PRECAUTIONS IN PLACE. PT IS AOX1 COHEN CATHETER INTACT. IV SITE ON R HAND G 24 FLUSHED PATENT. V/S FOLLOWS T 98.5 P 79 R 18 B/P 171/95 02 94%. PT SAYS THAT HE IS IN PAIN. PT GIVEN IVP MORPHINE FOR SEVERE PAIN IN ABDOMEN AND FOR GENERALIZED PAIN WELL.
--- NOTE | 2019-01-22 06:00 | NUR ---
REPORT GIVEN TO PEDRO LUIS RN DAYSHIFT NURSE AT BEDSIDE FOR CONTINUITY OF CARE, PT IN STABLE CONDITION.
--- NOTE | 2019-01-22 07:20 | NUR ---
RECEIVED BEDSIDE REPORT FROM DEFENSE TRAVEL ADMINISTRATOR NURSE HELLEN FOR CONTINUITY OF CARE. PATIENT WAS AWAKE AND SITTING UP ON BED. DAUGHTER JENA WAS AT BEDSIDE AND ABLE TO TRANSLATE AND COMMUNICATE WITH PATIENT IN [place]. ASSESSED NEURO CHECK WITH ASSIST FROM PATIENT'S DAUGHTER, PATIENT WAS ABLE TO VERBAL HIS NAME, PLACE AND BIRTHDAY CORRECTLY. PATIENT DENIED PAIN AND SOB. RESPIRATION EVEN AND UNLABORED ON RA. NO SIGNS OF DISTRESS NOTED. IV ON L HAND 22G, INTACT AND CLEAN, INFUSING PER MD ORDER. SKIN INTACT AND CLEAN. PATIENT IS BEDREST AT THIS TIME. COHEN IN PLACE AND DRAINING YELLOW URINE. DISCUSSED PLAN OF CARE WITH PATIENT AND DAUGHTER, BOTH VERBALIZED OK. SAFETY PRECAUTION IN PLACE. BED IN LOW POSITION AND CALL LIGHT WITHIN REACH. INSTRUCTED PATIENT AND DAUGHTER JENA TO USE THE CALL LIGHT FOR ANY ASSISTANCE, AND BOTH VERBALIZED UNDERSTANDING.
[2019-01-22 07:50] LABS: BASOPHILS % (AUTO) 0.4 % (0.0-2.0); EOSINOPHILS # (AUTO) 0.2 K/uL (0-0.4); EOSINOPHILS % (AUTO) 3.6 % (0.0-4.0); HEMATOCRIT 33.5 % (36-52); HEMOGLOBIN 11.6 g/dL (12.0-18.0); LYMPHOCYTES # (AUTO) 1.1 K/uL (2.0-11.5); LYMPHOCYTES % (AUTO) 22.2 % (20.5-51.1); MEAN CORPUSCULAR HEMOGLOBIN 34 pg (27-31); MEAN CORPUSCULAR HGB CONC 35 g/dL (33-37); MEAN CORPUSCULAR VOLUME 99.2 fL (80-94); MONOCYTES # (AUTO) 0.3 K/uL (0.8-1.0); MONOCYTES % (AUTO) 6.4 % (1.7-9.3); NEUTROPHILS # (AUTO) 3.4 K/uL (1.8-7.7); NEUTROPHILS % (AUTO) 67.4 % (42.2-75.2); PLATELET COUNT (AUTO) 185 K/uL (140-450); RED BLOOD CELL COUNT(AUTO) 3.38 MIL/uL (4.20-6.10); RED CELL DISTRIBUTION WIDTH 13.7 % (11.6-13.7); WHITE BLOOD COUNT (AUTO) 5.1 K/uL (4.8-10.8)
[2019-01-22 08:00] VITALS: BP 138/92
[2019-01-22 08:15] LABS: ALBUMIN 2.8 g/dL (3.4-5.0); ANION GAP 12.4 (8-16); ASPARTATE AMINOTRANSFERASE 15 U/L (15-37); CARBON DIOXIDE 23.5 mmol/L (21-32); CHLORIDE 101 mmol/L (98-107); CREATININE 0.5 mg/dL (0.7-1.3); GLUCOSE 102 mg/dL (74-106); POTASSIUM 3.9 mmol/L (3.5-5.1); SODIUM SERUM 133 mmol/L (136-145); TOTAL BILIRUBIN 0.6 mg/dL (0.0-1.0); UREA NITROGEN, BLOOD 9 mg/dL (7-18)
[2019-01-22 08:18] LABS: MAGNESIUM 1.7 mg/dL (1.8-2.4); PHOSPHORUS 1.7 mg/dL (2.5-4.9)
[2019-01-22] MEDS: CARBIDOPA/LEVODOPA 25/250 MG 1 TAB PO SCH (09:20)
[2019-01-22] MEDS: traMADol 50 MG TAB PO SCH ×3 (09:20→17:29)
[2019-01-22] MEDS: TAMSULOSIN 0.4 MG CAP PO SCH (09:20)
[2019-01-22] MEDS: FINASTERIDE 5 MG TAB PO SCH (09:21)
[2019-01-22] MEDS: ENOXAPARIN 30 MG/0.3 ML SYR SUBQ SCH (09:32)
--- NOTE | 2019-01-22 09:35 | NUR ---
ADMINISTERED MEDS PER MD ORDER, PATIENT TOLERATED WELL. PATIENT IS SITTING UP ON CHAIR BY BEDSIDE AND TALKING TO DAUGHTER JENA. DENIES PAIN AND SOB. NO SIGNS OF DISTRESS NOTED. SAFETY MEASURES IN PLACE. INSTRUCTED PATIENT AND DAUGHTER JENA TO USE THE CALL LIGHT FOR ANY ASSISTANCE AND BOTH ARE AWARE.
[2019-01-22] MEDS: NACL 0.9% 1,000 ML IV SCH (11:29)
--- NOTE | 2019-01-22 11:30 | NUR ---
LEADERSHIP COACH YAMINI IS TALKING TO PATIENT , DAUGHTER ACE, AND AT BEDSIDE. PATIENT IS RESTING ON BED AT THIS TIME. NO SIGNS OF DISTRESS NOTED. SAFETY MEASURES IN PLACE.
[2019-01-22] MEDS ORDERED: FINA5TAB5 PO (11:37)
[2019-01-22] MEDS ORDERED: TAMS0.4C96 PO (11:37)
--- NOTE | 2019-01-22 13:35 | NUR ---
ADMINISTERED MED PER MD ORDER, PATIENT TOLERATED WELL. PATIENT IS RESTING ON BED. DAUGHTER ACE IS BY BEDSIDE. NO SIGNS OF DISTRESS NOTED. SAFETY MEASURES IN PLACE.
[2019-01-22] MEDS: ONDANSETRON 4 MG/2 ML VIAL IVP PRN (13:42)
--- NOTE | 2019-01-22 13:45 | NUR ---
PATIENT COMPLAINED OF NAUSEA. PROVIDED VOMITING BAG AND ADMINISTERED PRN ZOFRAN. PATIENT TOLERATED WELL. DAUGHTER ACE IS BY BEDSIDE. NO SIGNS OF DISTRESS NOTED. SAFETY MEASURES IN PLACE. BED IN LOW POSITION AND CALL LIGHT WITHIN REACH.
[2019-01-22] MEDS: HYDROcodone/APAP 5/325 MG 1 TAB TAB PO PRN (15:04)
--- NOTE | 2019-01-22 15:04 | NUR ---
PATIENT COMPLAINED OF ABDOMINAL PAIN 02/12. ADMINISTRATED PRN PAIN MED NORCO, PATIENT TOLERATED WELL. DAUGHTER ACE IS BY BEDSIDE. PATIENT IS AWAKE AND SITTING UP ON BED AT THIS TIME. SAFETY MEASURES IN PLACE.
[2019-01-22 16:00] VITALS: BP 152/89
--- NOTE | 2019-01-22 16:05 | NUR ---
PATIENT'S DAUGHTER ACE WAS SAYING PATIENT IS GETTING CONFUSED AND AGITATED. ASSESSED PATIENT'S NEURO AD PATIENT WAS AOX1 TO NAME. VITAL SIGNS TAKEN; TEMP 98.8, BP 152/89, PULSE 98, SPO2 96 ON RA, AND RR 18. PAGED DR GIBSON ON REGARDS OF PATIENT'S ALOC.
--- NOTE | 2019-01-22 16:10 | NUR ---
RECEIVED CALL BACK FROM DR GIBSON AND NOTIFIED DR GIBSON THAT PATIENT IS AOX1 COMPARED TO MORNING NEURO. INFORMED DR GIBSON ABOUT PATIENT'S LAST VITAL SIGNS AND NORCO WAS GIVEN AT 1504 FOR 6/10 PAIN ON HIS ABDOMEN. ASKED IF DR GIBSON WANTS TO ORDER LAB WORK OR CT HEAD SCAN, PER DR GIBSON, PATIENT'S CONFUSION MIGHT CAUSE BY NORCO AND JUST MONITOR PATIENT CLOSELY. AND SINCE PATIENT WILL NOT BE TRANSFER TODAY, DR GIBSON WOULD LIKE TO ORDER [facility] FOR TOMORROW. READ BACK AND CONFIRM DR VELEZ, WILL ORDER [facility] FOR TOMORROW AM.
--- NOTE | 2019-01-22 17:33 | NUR ---
PATIENT IS RESTING ON BED AT THIS TIME. DAUGHTER IS BY BEDSIDE. NO SIGNS OF DISTRESS NOTED. SAFETY MEASURES IN PLACE.
--- NOTE | 2019-01-22 19:28 | NUR ---
ENDORSED PATIENT TO PLATE SLITTER AND INSPECTOR NURSE FOR CONTINUITY OF CARE. PATIENT IS IN STABLE CONDITION.
--- NOTE | 2019-01-22 19:30 | NUR ---
RECEIVED BEDSIDE REPORT FROM PEDRO LUIS MEYER. PT IS AAO X1. ON ROOM AIR. RESPIRATIONS ARE EQUAL AND UNLABORED. LUNG SOUNDS ARE CLEAR DAUGHTER KRISTEN IS AT BEDSIDE. PT STATES WANTS TO GET UP AND WALK. PER NURSE PT NEEDS TO AMBULATE WITH PT FOR WEAKNESS. IV ON L HAND 22G INFUSING NS AT 75ML/H. ON PUREE DIET AND IS A FEEDER PT COMING FROM HOME. PLAN OF CARE DISCUSSED WITH PT AND DAUGHTER. SAFETY MEASURES ARE IN PLACE. WILL CONTINUE TO MONITOR.
--- NOTE | 2019-01-22 20:54 | NUR ---
DAUGHTER WANTS PT TO GET MEDICATION TO HELP HIM SLEEP. CRUSHED SEROQUEL PRN FOR INSOMNIA PT TAKES AT HOME. PT PATIENT SPIT IT OUT AND REFUSED TO TAKE. WILL CONTINUE TO MONITOR.
--- NOTE | 2019-01-22 22:00 | NUR ---
PATIENT IS RESTING IN BED. STILL WANTS TO GET OUT OF BED TO WALK. WILL REPOSITION FOR COMFORT.
--- NOTE | 2019-01-22 23:36 | NUR ---
PATIENT PULLED COHEN CATH AND CAUSED IRRITATION. COHEN DARNING BLOOD NOW. EMPTIED COHEN WILL CONTINUE TO MONITOR. HIS DAUGHTER IS AT BEDSIDE. ATTEMPT TO HIDE COHEN BY PLACING CHUCKS AND A TOWEL ON TOP. COVERED PT WITH BLANKET AND PLACED PILLOW ON TOP OF PELVIS AREA. WILL CONTINUE TO MONITOR. ATTEMPT TO ADMINISTER TYLENOL WITH APPLE SAUCE PT IS REFUSING. SAFETY MEASURES ARE IN PLACE.
--- NOTE | 2019-01-22 23:47 | NUR ---
VITAL SIGNS ARE WITHIN NORMAL LIMITS: 97.6, 149/93, 98 96% RA. SAFETY MEASURES ARE IN PLACE. WILL CONTINUE TO MONITOR.
[2019-01-22 23:57] VITALS: BP 149/93
--- NOTE | 2019-01-23 00:10 | NUR ---
PAGED DR VILLANUEVA REGARDING PT PULLING ON COHEN CATHETER. NEW ORDER FOR RESTRAINTS: MITTEN. APPLIED MITTEN. PT IS MAD HARD TO UNDERSTAND HIM. EDUCATED PATIENT ON REASON AND ITS FOR HIS SAFETY IF HE IS COMPLIANT I WILL REMOVED THEM. ALL SAFETY MEASURES ARE IN PLACE. WILL CONTINUE TO MONITOR.
[2019-01-23] MEDS: NACL 0.9% 1,000 ML IV SCH ×2 (00:50→15:00)
--- NOTE | 2019-01-23 02:05 | NUR ---
RELEASE RESTRAINTS PT STILL ATTEMPTING TO PULL COHEN. MITTENS REAPPLIED. CIRCULATION GOOD. DENIES PAIN. ALL SAFETY MEASURES ARE IN PLACE. WILL CONTINUE TO MONITOR
--- NOTE | 2019-01-23 03:52 | NUR ---
PT SLEEPING. NO S/S OF DISTRESS. DAUGHTER AT BEDSIDE.
[2019-01-23] MEDS: OMEPRAZOLE 20MG CAP PO SCH (06:28)
--- NOTE | 2019-01-23 07:17 | NUR ---
GAVE BEDSIDE REPORT TO PEDRO LUIS MEYER. PT ENDORSED IN STABLE CONDITION.
--- NOTE | 2019-01-23 07:19 | NUR ---
RECEIVED BEDSIDE REPORT FROM CONDITIONER TENDER NURSE FOR CONTINUITY OF CARE. PATIENT WAS AWAKE AND RESTING ON BED. DAUGHTER CHARLEY WAS AT BEDSIDE AND ABLE TO TRANSLATE AND COMMUNICATE WITH PATIENT IN GREEK. ASSESSED NEURO CHECK WITH ASSIST FROM PATIENT'S DAUGHTER, PATIENT WAS ABLE TO VERBAL HIS NAME AND BIRTHDAY CORRECTLY. PATIENT DENIED PAIN AND SOB. RESPIRATION EVEN AND UNLABORED ON RA. LUNGS ARE CLEAR ON AUSCULTATION. NO SIGNS OF DISTRESS NOTED. IV ON L HAND 22G, INTACT AND CLEAN, INFUSING PER MD ORDER. SKIN INTACT AND CLEAN. MITTENS ON HANDS NOTED. PATIENT IS BEDREST AT THIS TIME. COHEN IN PLACE AND DRAINING YELLOW URINE AND MINIMAL BLOOD IN URINE NOTED. DISCUSSED PLAN OF CARE WITH PATIENT AND DAUGHTER, DAUGHTER CHARLEY VERBALIZED OK. SAFETY PRECAUTION IN PLACE. BED IN LOW POSITION AND CALL LIGHT WITHIN REACH. INSTRUCTED PATIENT AND DAUGHTER CHARLEY TO USE THE CALL LIGHT FOR ANY ASSISTANCE, AND CHARLEY VERBALIZED UNDERSTANDING.
[2019-01-23 08:00] VITALS: BP 141/85
[2019-01-23 08:10] LABS: BASOPHILS % (AUTO) 0.2 % (0.0-2.0); EOSINOPHILS # (AUTO) 0.1 K/uL (0-0.4); EOSINOPHILS % (AUTO) 0.9 % (0.0-4.0); HEMATOCRIT 29.5 % (36-52); HEMOGLOBIN 10.1 g/dL (12.0-18.0); LYMPHOCYTES % (AUTO) 18.1 % (20.5-51.1); MEAN CORPUSCULAR HEMOGLOBIN 34 pg (27-31); MEAN CORPUSCULAR HGB CONC 34 g/dL (33-37); MEAN CORPUSCULAR VOLUME 99.9 fL (80-94); MONOCYTES # (AUTO) 0.5 K/uL (0.8-1.0); MONOCYTES % (AUTO) 7.9 % (1.7-9.3); NEUTROPHILS # (AUTO) 4.2 K/uL (1.8-7.7); NEUTROPHILS % (AUTO) 72.9 % (42.2-75.2); PLATELET COUNT (AUTO) 167 K/uL (140-450); RED BLOOD CELL COUNT(AUTO) 2.95 MIL/uL (4.20-6.10); RED CELL DISTRIBUTION WIDTH 13.6 % (11.6-13.7); WHITE BLOOD COUNT (AUTO) 5.7 K/uL (4.8-10.8)
[2019-01-23 08:23] LABS: ANION GAP 11.9 (8-16); CHLORIDE 116 mmol/L (98-107); CREATININE 0.5 mg/dL (0.7-1.3); GLUCOSE 107 mg/dL (74-106); POTASSIUM 3.9 mmol/L (3.5-5.1); SODIUM SERUM 148 mmol/L (136-145); UREA NITROGEN, BLOOD 10 mg/dL (7-18)
[2019-01-23 08:58] LABS: MAGNESIUM 1.3 mg/dL (1.8-2.4); PHOSPHORUS 1.9 mg/dL (2.5-4.9)
[2019-01-23] MEDS: traMADol 50 MG TAB PO SCH ×3 (09:16→16:49)
[2019-01-23] MEDS: CARBIDOPA/LEVODOPA 25/250 MG 1 TAB PO SCH (09:21)
[2019-01-23] MEDS: FINASTERIDE 5 MG TAB PO SCH (09:21)
[2019-01-23] MEDS: ENOXAPARIN 30 MG/0.3 ML SYR SUBQ SCH (09:27)
[2019-01-23] MEDS: TAMSULOSIN 0.4 MG CAP PO SCH (09:36)
--- NOTE | 2019-01-23 09:36 | NUR ---
ADMINISTERED MEDS PER MD ORDER, PATIENT TOLERATED WELL. DAUGHTER JENA AND ARE BY BEDSIDE. NO SIGNS OF DISTRESS NOTED. BED IN LOW POSITION AND CALL LIGHT WITHIN REACH. SAFETY MEASURES IN PLACE.
--- NOTE | 2019-01-23 11:20 | NUR ---
PATIENT IS RESTING ON BED AT THIS TIME. REMOVED MITTENS FROM PATIENT'S HANDS. NO SIGNS OF DISTRESS NOTED. DAUGHTER JENA AND ARE BY BEDSIDE. SAFETY MEASURES IN PLACE. BED IN LOW POSITION AND CALL LIGHT WITHIN REACH. INSTRUCTED FAMILY TO USE THE CALL LIGHT FOR ANY ASSISTANCE AND ALL VERBALIZED UNDERSTAND.
--- NOTE | 2019-01-23 11:50 | NUR ---
DR GIBSON AT BEDSIDE, INFORMED OF BLOODY URINE IN COHEN CATH AFTER PT TRYING TO PULL ON CATHETER, NO NEW ORDERS, CONTINUE TO MONITOR.
--- NOTE | 2019-01-23 12:02 | NUR ---
DISCHARGE ORDER RECEIVED AND ACKNOWLEDGED. PENDING FROM CM FOR SNF PLACEMENT.
[2019-01-23] MEDS ORDERED: CALCIUM CARBONATE 500 MG TAB.CHEW PO PRN (12:15)
[2019-01-23] MEDS ORDERED: MAG SULF 2000 MG/WATER PREMIX 50 ML IV SCH (13:00)
--- NOTE | 2019-01-23 13:40 | NUR ---
ADMINISTERED MEDS PER MD ORDER, PATIENT TOLERATED WELL. PATIENT IS RESTING ON BED AT THIS TIME. DAUGHTER JENA AND ARE AT BEDSIDE. NO SIGNS OF DISTRESS NOTED. SAFETY MEASURES IN PLACE. BED IN LOW POSITION AND CALL LIGHT WITHIN REACH.
--- NOTE | 2019-01-23 14:01 | NUR ---
DC PLANNING: CM CONTACTED [facility]OCIATE [facility] @ P TO OBTAIN CONTRACTED LIST OF SNF AND DISCUSSED CASE REGARDING DC PLAN FOR PATIENT TO SNF FOR SHORT TERM REHAB. ASSIGNED PEDIATRIC INTENSIVE PHYSICIAN IS HOA. HOWEVER, ALIDA CAMARA WAS UNAVAILABLE. CM LEFT A DETAILED MESSAGE AND CALL BACK NUMBER. AWAITING FOR CALL BACK. CM TO FOLLOW UP LATER TODAY.
--- NOTE | 2019-01-23 15:13 | NUR ---
PATIENT IS RESTING ON BED AT THIS TIME. RESPIRATION EVEN AND UNLABORED. NO SIGNS OF DISTRESS NOTED. FAMILY IS AT BEDSIDE. SAFETY MEASURES IN PLACE. INSTRUCTED FAMILY TO USE THE CALL LIGHT FOR ANY ASSISTANCE AND PATIENT WAS AWARE.
[2019-01-23 16:00] VITALS: BP 140/82
--- NOTE | 2019-01-23 17:27 | NUR ---
ASSISTED MASONRY INSPECTOR TO REPOSITION PATIENT, PATIENT TOLERATED WELL. PATIENT IS RESTING ON BED. RESPIRATION EVEN AND UNLABORED. DENIES PAIN AND SOB. NO SIGNS OF DISTRESS NOTED. MINIMAL BLOOD NOTED AND DRAINING FROM COHEN, WILL CONTINUE MONITOR TO SEE IF THERE IS ACTIVE BLEEDING. PATIENT'S DAUGHTER JENA AND IS AT BEDSIDE. SAFETY MEASURES IN PLACE. INSTRUCTED DAUGHTER JENA TO USE THE CALL LIGHT FOR ANY ASSISTANCE AND JENA VERBALIZED UNDERSTANDING.
[2019-01-23] MEDS: ONDANSETRON 4 MG/2 ML VIAL IVP PRN (17:43)
--- NOTE | 2019-01-23 17:47 | NUR ---
PATIENT COMPLAINED OF NAUSEA. ADMINISTERED PRN ZOFRAN VIA IVP. PATIENT TOLERATED WELL. DAUGHTER JENA AND IS BY BEDSIDE. NO SIGNS OF DISTRESS NOTED. SAFETY MEASURES IN PLACE. BED IN LOW POSITION AND CALL LIGHT WITHIN REACH.
--- NOTE | 2019-01-23 19:09 | NUR ---
ENDORSED PATIENT AT BEDSIDE TO ADDICTIONS RECOVERY SPECIALIST NURSE FOR CONTINUITY OF CARE. PATIENT IS IN STABLE CONDITION. NO SIGNS OF DISTRESS NOTED. FAMILY MEMBERS ARE BY BEDSIDE. SAFETY MEASURES IN PLACE.
--- NOTE | 2019-01-23 19:13 | NUR ---
RECEIVED BEDSIDE REPORT FROM PEDRO LUIS MEYER. PT IS AAO X1. ON ROOM AIR. RESPIRATIONS ARE EQUAL AND UNLABORED. LUNG SOUNDS ARE CLEAR DAUGHTER JENA AND ARE AT BEDSIDE. PT STATES WANTS TO GET UP AND WALK. PER NURSE PT NEEDS TO AMBULATE WITH PT FOR WEAKNESS. IV ON L HAND 22G INFUSING NS AT 75ML/H. ON PUREE DIET AND IS A FEEDER PT COMING FROM HOME. COHEN CATH DRAINING LIGHT RED STARTING TO CLEAR UP. PLAN OF CARE DISCUSSED WITH PT AND DAUGHTER. SAFETY MEASURES ARE IN PLACE. WILL CONTINUE TO MONITOR.
--- NOTE | 2019-01-23 20:21 | NUR ---
VITAL SIGNS ARE WITHIN NORMAL LIMITS. PATIENT IS SLEEPING COMFORTABLY IN BED. NO S/S OF DISTRESS. DAUGHTER ACE AND GRANDDAUGHTER ARE AT BEDSIDE. CALL LIGHT WITHIN REACH.
--- NOTE | 2019-01-23 22:34 | NUR ---
PATIENT IS SLEEPING COMFORTABLY IN BED. RESPIRATIONS ARE EQUAL AND UNLABORED. SAFETY MEASURES ARE IN PLACE. DAUGHTER IS AT BEDSIDE. WILL CONTINUE TO MONITOR.
[2019-01-23 23:22] VITALS: BP 134/77
--- NOTE | 2019-01-23 23:24 | NUR ---
VITAL SIGNS ARE WITHIN NORMAL LIMITS. PT RESTING COMFORTABLY IN BED WITH NO S/S OF DISTRESS. ALL SAFETY MEASURES ARE IN PLACE. CALL LIGHT WITHIN REACH.
--- NOTE | 2019-01-24 00:35 | NUR ---
PATIENT HAD BM BROWN, SOFT AND FORMED. PATIENT CLEANED AND REPOSITION FOR COMFORT. NO S/S OF DISTRESS NOTED. SAFETY MEASURES ARE IN PLACE. CALL LIGHT WITHIN REACH. WILL CONTINUE TO MONITOR.
[2019-01-24] MEDS: NACL 0.9% 1,000 ML IV SCH (03:07)
--- NOTE | 2019-01-24 04:00 | NUR ---
PATIENT SLEEPING COMFORTABLY. NO S/S OF DISTRESS.
[2019-01-24] MEDS: OMEPRAZOLE 20MG CAP PO SCH (06:31)
[2019-01-24 07:05] LABS: BASOPHILS % (AUTO) 0.4 % (0.0-2.0); EOSINOPHILS # (AUTO) 0.3 K/uL (0-0.4); EOSINOPHILS % (AUTO) 7.5 % (0.0-4.0); HEMATOCRIT 29.7 % (36-52); HEMOGLOBIN 10.2 g/dL (12.0-18.0); LYMPHOCYTES # (AUTO) 1.2 K/uL (2.0-11.5); MEAN CORPUSCULAR HEMOGLOBIN 35 pg (27-31); MEAN CORPUSCULAR HGB CONC 34 g/dL (33-37); MEAN CORPUSCULAR VOLUME 100.4 fL (80-94); MONOCYTES # (AUTO) 0.4 K/uL (0.8-1.0); MONOCYTES % (AUTO) 8.5 % (1.7-9.3); NEUTROPHILS # (AUTO) 2.5 K/uL (1.8-7.7); NEUTROPHILS % (AUTO) 56.6 % (42.2-75.2); PLATELET COUNT (AUTO) 177 K/uL (140-450); RED BLOOD CELL COUNT(AUTO) 2.95 MIL/uL (4.20-6.10); RED CELL DISTRIBUTION WIDTH 13.7 % (11.6-13.7); WHITE BLOOD COUNT (AUTO) 4.5 K/uL (4.8-10.8)
[2019-01-24 07:11] LABS: ANION GAP 10.1 (8-16); CARBON DIOXIDE 24.5 mmol/L (21-32); CHLORIDE 103 mmol/L (98-107); CREATININE 0.5 mg/dL (0.7-1.3); GLUCOSE 81 mg/dL (74-106); POTASSIUM 3.6 mmol/L (3.5-5.1); SODIUM SERUM 134 mmol/L (136-145); UREA NITROGEN, BLOOD 7 mg/dL (7-18)
[2019-01-24 07:14] LABS: MAGNESIUM 1.7 mg/dL (1.8-2.4); PHOSPHORUS 1.9 mg/dL (2.5-4.9)
--- NOTE | 2019-01-24 07:21 | NUR ---
RECEIVED BEDSIDE REPORT FROM DIRECTOR INTERNATIONAL RN. PT IS AAO X2. ON ROOM AIR. RESPIRATIONS ARE EQUAL AND UNLABORED. LUNG SOUNDS ARE CLEAR DAUGHTER JENA AND ARE AT BEDSIDE. PT STATES HE IS SLEEPY. IV ON L HAND 22G INFUSING NS AT 75ML/H. ON PUREE DIET AND IS A FEEDER PT COMING FROM HOME. COHEN CATH DRAINING LIGHT RED STARTING TO CLEAR UP. PLAN OF CARE DISCUSSED WITH PT AND DAUGHTER. SAFETY MEASURES ARE IN PLACE. WILL CONTINUE TO MONITOR.
--- NOTE | 2019-01-24 07:30 | NUR ---
GAVE BEDSIDE REPORT TO DAY SHIFT RN. PT ENDORSED IN STABLE CONDITION.
[2019-01-24 08:00] VITALS: BP 143/82
[2019-01-24] MEDS: traMADol 50 MG TAB PO SCH ×2 (09:00→13:00)
--- NOTE | 2019-01-24 10:10 | NUR ---
ADMINISTERED MORNING MEDS TO PT. PT TOLERATED THEM WELL. ALL NEEDS CURRENTLY MET. WILL CONTINUE TO ROUND FREQUENTLY ON PT. FAMILY AT BEDSIDE.
[2019-01-24] MEDS: TAMSULOSIN 0.4 MG CAP PO SCH (10:34)
[2019-01-24] MEDS: CARBIDOPA/LEVODOPA 25/250 MG 1 TAB PO SCH (10:35)
[2019-01-24] MEDS: FINASTERIDE 5 MG TAB PO SCH (10:35)
[2019-01-24] MEDS: ENOXAPARIN 30 MG/0.3 ML SYR SUBQ SCH (10:37)
--- NOTE | 2019-01-24 12:43 | NUR ---
PT SLEEPING IN BED. NO SIGNS OF PAIN OR DISTRESS AT THIS TIME. FAMILY AT BEDSIDE. WILL CONTINUE TO ROUND FREQUENTLY.
--- NOTE | 2019-01-24 14:39 | NUR ---
PT RESTING IN BED WITH FAMILY AT BEDSIDE. ALL NEEDS CURRENTLY MET. AWAITING HOME HEALTH TO BE SET UP FOR PT DISCHARGE. BED IN LOW POSITION, CALL LIGHT WITHIN REACH.
--- NOTE | 2019-01-24 15:06 | NUR ---
Faxed clinicals to [facility] . Spoke with Kate from [facility] . They are accepting the pt and they will follow up with the pt tomorrow. Gisele Lorenzo RN PT for [facility] [address] has been arranged and pt can be discharge now.
--- NOTE | 2019-01-24 15:20 | NUR ---
Clinicals faxed to [facility] .
--- NOTE | 2019-01-24 16:48 | NUR ---
PT SLEEPING IN BED. ALL NEEDS CURRENTLY MET. WILL CONTINUE TO ROUND FREQUENTLY.
--- NOTE | 2019-01-24 17:10 | NUR ---
PT DISCHARGED HOME FOR SELF CARE WITH HOME HEALTH PT. PT DISCHARGE INSTRUCTIONS GIVEN TO DAUGHTER AT BEDSIDE. DAUGHTER VERBALIZED UNDERSTANDING OF TEACHING AND SIGNED ALL PAPERWORK. IV REMOVED WITH TIP INTACT. WRIST BANDS REMOVED AND PLACED IN SHRED BIN. ALL PERSONAL BELONGINGS TAKEN WITH PT. PT COHEN LEFT IN PLACE PER MD ORDERS DUE TO URINARY RETENTION. COHEN CARE TEACHING WAS GIVEN TO DAUGHTER. SHE VERBALIZED UNDERSTANDING. DAUGHTER TOOK PT HOME IN STABLE CONDITION.
== END 2019-01-24 17:10 | disposition home health service (06) | DRG 501 ==
LOC: MED 21:05 → MTU 01-19 03:09
PROVIDERS: ADMIT Internal Medicine Pulmonary Disease; ATTEND Internal Medicine Pulmonary Disease
DX: N40.1 Benign prostatic hyperplasia with lower urinary tract symptoms (principal); N17.9 Acute kidney failure, unspecified; G20 Parkinson's disease; E86.0 Dehydration; N13.8 Other obstructive and reflux uropathy; N39.0 Urinary tract infection, site not specified; E86.9 Volume depletion, unspecified; N18.9 Chronic kidney disease, unspecified; K59.00 Constipation, unspecified; K21.9 Gastro-esophageal reflux disease without esophagitis; Z90.5 Acquired absence of kidney
CPT/HCPCS: 36415; 80048; 80053; 81001; 83605; 83690; 83735; 84100; 85025; 87040; 87081; 87086; 96365; 96375; 97110; 97116; 97161-GP; 97530; 99285; C1758; J0696; J1650; J2270; J2405; J3475; J7030; J7060